=== PATIENT | male | born 1970 | race Caucasian/White ===

== ENCOUNTER → 2022-01-26 | Outpatient (CLI) | payer SELFPAY ==
[~2022-01-26] MED LIST: CEPHALEXIN750 MG PO; DHEA25 M3 PO; MULTIVITAMIN1 SGL PO
== END ==
LOC: LAB 13:52
DX: U07.1 COVID-19 (principal)

== ENCOUNTER 2023-06-19 14:03 | Emergency (ER) | payer MEDICAID ==
[~2023-06-19] VITALS: Ht 172.7 cm; Wt 77.3 kg
[~2023-06-19 14:03] MED LIST changes: +ONDANSETRON HYDR4 MG PO; +PRILOSEC 20MG20 MG PO
[2023-06-19 14:45] LABS: BASO # 0.03 K/mm3 (0.02-0.10); EOS # 0.09 K/mm3 (0.04-0.40); HEMOGLOBIN 16.8 g/dL (13.5-18.0); LYMPH# 0.73 K/mm3 (1.50-4.00); MEAN CELL VOLUME 93 fl (78-100); MEAN CORPUSCULAR HEMOGLOBIN 32 pg (27-31); MEAN CORPUSCULAR HGB CONC 34 g/dL (33-37); MEAN PLATELET VOLUME 9.6 fl (7.4-10.4); MONO # 0.41 K/mm3 (0.20-0.80); NEU # 8.13 K/mm3 (1.40-6.50); PLATELET COUNT 205 K/mm3 (130-400); RED BLOOD COUNT 5.29 M/mm3 (4.20-5.60); RED CELL DISTRIBUTION WIDTH 12.3 % (11.5-14.5); WHITE BLOOD COUNT 9.4 K/mm3 (4.8-10.8)
[2023-06-19 14:54] LABS: ALBUMIN 4.3 g/dL (3.5-5.0); SODIUM 138 mmol/L (136-145)
[2023-06-19 14:55] LABS: CALCIUM 9.2 mg/dL (8.3-10.5)
[2023-06-19 14:56] LABS: GLUCOSE 104 mg/dL (75-110)
[2023-06-19 14:57] LABS: TOTAL PROTEIN 7.2 g/dL (6.4-8.3)
[2023-06-19 14:58] LABS: CARBON DIOXIDE 21 mmol/L (22-29)
[2023-06-19 15:02] LABS: AST-SGOT 22 U/L (5-34)
[2023-06-19 15:03] LABS: ALT/SGPT 19 U/L (0-55)
[2023-06-19 15:15] LABS: TROPONIN-I < 0.030 ng/mL (<0.030)
[2023-06-19] MEDS ORDERED: ONDANSETRON HYDR4 MG PO (16:25)
[2023-06-19 17:40] VITALS: BP 113/83
== END 2023-06-19 17:42 | disposition home or self-care (01) ==
LOC: ED 14:03
PROVIDERS: Physician Assistant
DX: A08.4 Viral intestinal infection, unspecified (principal)
CPT/HCPCS: J2405; J7030

== ENCOUNTER → 2024-07-31 | Outpatient (CLI) | payer OTHER | LOC: LAB 10:52 | DX: J02.9 Acute pharyngitis, unspecified (principal) ==